=== PATIENT | female | born 1995 ===

== ENCOUNTER 2018-03-28 07:45 | Inpatient (IN) | payer OTHER ==
[2018-03-28] MEDS ORDERED: Oxytocin 30 UNIT 30 UNITS/500 ML BAG IV ONE ×2 (08:53→13:40)
[2018-03-28] MEDS ORDERED: Lactated Ringer's 1,000 ML IV SCH (09:00)
[2018-03-28 10:16] LABS: BASO % 0.5 % (0.0-2.0); EOS % 0.3 % (0.0-4.0); HEMOGLOBIN 13.4 g/dL (11.0-16.0); LYMPH # 1.2 K/uL (1.0-4.3); LYMPH % 12.5 % (20.0-40.0); MEAN CELL VOLUME 81.4 fL (81.0-99.0); MEAN CORPUSCULAR HGB CONC 33.2 g/dL (33.0-37.0); MEAN PLATELET VOLUME 7.8 fL (7.2-11.7); MONO # 0.5 K/uL (0.0-0.8); MONO % 5.5 % (0.0-10.0); NEUT % 81.2 % (50.0-75.0); NRBC % 0.1 % (0.0-2.0); RBC 4.95 Mil/uL (3.80-5.20); WHITE BLOOD COUNT 9.9 K/uL (4.8-10.8)
[2018-03-28 10:29] LABS: ALB/GLOB RATIO 1.1 (1.0-2.1); ALBUMIN 3.6 g/dL (3.5-5.0); ALT/SGPT 13 U/L (9-52); AST/SGOT 17 U/L (14-36); BLOOD UREA NITROGEN 8 mg/dL (7-17); CALCIUM 9.2 mg/dl (8.6-10.4); GFR NON-AFRICAN AMERICAN > 60
--- NOTE | 2018-03-28 12:19 | OBHP ---
Datetime: 03/28/2018 09:26 IP Adm Impression: Term, intrauterine IP Admit Plan: Admit to unit; Initiate labor protocol; Initiate labor augmentation protocol Admit Comment, IP Provider: Pelvic Type - PN: Adequate Extremities - PN: Normal Abdomen - PN: Normal Back - PN: Normal Breast - PN: Not Done Lungs - PN: Normal Heart - PN: Normal Thyroid - PN: Normal Neurologic - PN: Normal HEENT - PN: Normal General - PN: Normal FHR - Baseline A Provider: 130 Comments, ACOG Physical Exam: Abdomen: gravid, fundal height consistent with gestational age. Gestation - Est Wks by US: 39.0 IP Hx Assessment: The History has been Reviewed and is Current EGA AdmitDate IP: 38.4 Vital Signs Provider: Reviewed IP Chief Complaint: Uterine contractions NICHD Variability Prov Fetus A: Moderate 6-25bpm NICHD Accel Fetus A IP Provider: 15X15 FHR Category Provider Fetus A: Category I NICHD Decel Fetus A IP Provider: None Dilatation, Provider: 2 Effacement, Provider: 80 Station, Provider: -2 Genitourinary Exam: Normal DTRs - PN: Normal
--- NOTE | 2018-03-28 12:34 | OBADHP ---
Datetime: 03/28/2018 09:26 Admit Comment, IP Provider: 22 yo female G1 with an IUP at 38.4 weeks Presented to L_D with complaints of contractions Q 5-6 minutes since earlier todayand appears in a lot of pain. Denies LOF, VB and admits to adequate FM NST Reactive UC's Q 4-5 minutes and painful records reviewed and GBS Negative Blood Type O+ No Complications PMHx Negative PSHx Negative Allergies to [place] Social HX Used to smoke [place], Denies ETOH or other drugs Will admit for and will augment labor if indicated Anticipate a vaginal delivery Pelvic Type - PN: Adequate Extremities - PN: Normal Abdomen - PN: Normal Back - PN: Normal Breast - PN: Not Done Lungs - PN: Normal Heart - PN: Normal Thyroid - PN: Normal Neurologic - PN: Normal HEENT - PN: Normal General - PN: Normal FHR - Baseline A Provider: 130 Comments, ACOG Physical Exam: Abdomen: gravid, fundal height consistent with gestational age. Gestation - Est Wks by US: 39.0 IP Hx Assessment: The History has been Reviewed and is Current Vital Signs Provider: Reviewed IP Chief Complaint: Uterine contractions NICHD Variability Prov Fetus A: Moderate 6-25bpm NICHD Accel Fetus A IP Provider: 15X15 FHR Category Provider Fetus A: Category I NICHD Decel Fetus A IP Provider: None Dilatation, Provider: 2 Effacement, Provider: 80 Station, Provider: -2 Genitourinary Exam: Normal DTRs - PN: Normal EGA AdmitDate IP: 38.4 IP Adm Impression: Term, intrauterine IP Admit Plan: Admit to unit; Initiate labor protocol
[2018-03-28] MEDS ORDERED: Bupivacaine HCl/FentaNYL Cit 100 ML EPI ONE ×2 (12:46→18:56)
--- NOTE | 2018-03-28 12:54 | OBPN ---
Datetime: 03/28/2018 12:32 IP Progress Impression: Normal progression of labor; Reassuring heart rate IP Informed Consent Obtain: Vaginal Delivery IP Procedures: Artificial ROM; Scalp Electrode; Sterile Vag Exam IP Progress Plan: Continue present management; Augmentation Membranes, Provider: Ruptured Contraction Comments Provider: Q 3-4 minutes FHR - Baseline A Provider: 120 Gestation - Est Wks by US: 38.4 Presentation-Admit: Vertex IP Progress Note Comment: AROM performed with return of clear fluid Small change on cervical exam Pt in a lot of pain but had declined the epidural and again all of her questions answered and will considered Will Start Pitocin for augmentation of labor tracing reactive Anticipate a vaginal delivery NICHD Accel Fetus A IP Provider: 10X10 NICHD Variability Prov Fetus A: Moderate 6-25bpm Dilatation, Provider: 3 Effacement, Provider: 90 Station, Provider: -2 NICHD Decel Fetus A IP Provider: None Datetime: 03/28/2018 09:26 Vital Signs Provider: Reviewed FHR Category Provider Fetus A: Category I
[2018-03-28 15:20] LABS: SQUAMOUS EPITHIAL 1 /hpf (0-5); URINE BILIRUBIN NEGATIVE (NEGATIVE); URINE BLOOD NEGATIVE (NEGATIVE); URINE CLARITY Clear (Clear); URINE COLOR Yellow (YELLOW); URINE GLUCOSE (UA) NORMAL (Normal); URINE LEUKOCYTE ESTERASE NEG Leu/uL (Negative); URINE PROTEIN NEGATIVE (NEGATIVE); URINE UROBILINOGEN NORMAL mg/dL (0.2-1.0)
[2018-03-28] MEDS ORDERED: Lidocaine 2% MPF (5 ml) Inj ONE ×3 (15:45→23:13)
[2018-03-28 16:44] LABS: BARBITURATES, UR NEGATIVE (NEGATIVE); BENZODIAZEPINES, UR NEGATIVE (NEGATIVE); OPIATES, UR NEGATIVE (NEGATIVE); PHENCYCLIDINE, UR NEGATIVE (NEGATIVE)
[2018-03-28] MEDS ORDERED: Sodium Citrate/Citric Acid 15 ml Sol PO ONE (21:28)
[2018-03-28] MEDS ORDERED: cefOXitin IV 2 gm in Dextrose 2 GM/50 ML BAG IVPB ONE (21:28)
[2018-03-28] MEDS ORDERED: cefOXitin IV 2 gm in Saline 2 GM/50 ML BAG IVPB ONE (21:35)
[2018-03-28] MEDS ORDERED: Oxytocin 20 units in LR 2,000 ML IV ONE (21:35)
[2018-03-28] MEDS ORDERED: Sodium Bicarbonate (8.4%) 50 Meq Syringe ONE (21:50)
[2018-03-28] MEDS ORDERED: ePHEDrine 50 mg/ml Inj ONE (21:59)
[2018-03-28] MEDS ORDERED: Oxytocin 10 Units/ml Inj ONE (23:01)
[2018-03-28] MEDS ORDERED: Morphine 4 MG/ML VIAL ONE ×2 (23:04→23:11)
[2018-03-28] MEDS ORDERED: Midazolam 2 MG/2 ML VIAL ONE ×3 (23:05→23:16)
[2018-03-28] MEDS ORDERED: HYDROmorphone 0.5 mg/0.5 ml ISec IVP PRN (23:53)
[2018-03-28] MEDS ORDERED: DiphenhydrAMINE 50 mg/ml Inj IVP PRN (23:54)
--- NOTE | 2018-03-28 23:55 | OBDS ---
DELIVERY PERSONNEL Delivery Doctor: DR NOVA Cribber: Carol Rivers RN Anesthesiologist: DR DANG MATERNAL INFORMATION Delivery Anesthesia: Epidural Medications in Delivery: pitocin 20 units, methergin 0.2 mg Estimated Blood Loss (ml): 600 Maternal Complications: None RN Comments: Primary CS to a live baby boy with 02/27 Provider Comments: LTC C/S with delivery of a viable male from ROT position. Apgars 9_9 at 1 and 5 minutes respectively. BW 6lbs, 10 oz EBL 600 mls Mild uterine atony ressolved with Pitocin infusion and Methergine 0.2 mg IM x 1 Pt and tolerated the procedure well and left the OR in S_S condition. LABOR SUMMARY EDC: 04/07/2018 00:00 No. Babies in Womb: 1 Attempted: No Labor Anesthesia: Epidural LABOR INFORMATION Reason for Induction: Not Applicable Onset of Labor: 03/28/2018 18:15 Oxytocin: Augmentation Group B Beta Strep: Negative Steroids Given: None Reason Steroids Not Administered: Not Applicable Other Reason Not Administered: NA MEMBRANES Membranes Rupture Method: Artificial Rupture of Membranes: 03/28/2018 12:05 Length of Rupture (hrs): 10.82 Amniotic Fluid Color: Clear Amniotic Fluid Amount: Moderate Amniotic Fluid Odor: Normal STAGES OF LABOR Stage 3 hrs: 0 Stage 3 min: 1 Total Time in Labor hrs: 4 Total Time in Labor min: 40 CSECTION DELIVERY CSection Urgency: N/A CSection Incidence: Primary Labor: Labor Elective: Nonelective CSection Incision: Lower Uterine Transverse BABY A INFORMATION Infant Delivery Date/Time: 03/28/2018 22:54 Method of Delivery: Born in Route : No : N/A Forceps: N/A Vacuum Extraction: N/A Shoulder Dystocia : No SHOULDER DYSTOCIA BABY A Delivery Date/Time: 03/28/2018 22:54 PRESENTATION/POSITION BABY A Presentation: Cephalic Cephalic Presentation: Vertex Vertex Position: Left Occipital Anterior Breech Presentation: N/A PLACENTA INFORMATION BABY A Placenta Delivery Time : 03/28/2018 22:55 Placenta Method of Delivery: Manual Removal Placenta Status: Delivered SCORES BABY A Heart Rate 1 min: >100 bpm Resp Effort 1 min: Good Cry Reflex Irritability 1 min: Cough or Sneeze or Pulls Away Muscle Tone 1 min: Active Motion Color 1 min: Body Lem[place], Extremities Blue SCORE 1 MIN: 9 Heart Rate 5 min: >100 bpm Resp Effort 5 min: Good Cry Reflex Irritability 5 min: Cough or Sneeze or Pulls Away Muscle Tone 5 min: Active Motion Color 5 min: Body [place], Extremities Blue SCORE 5 MIN: 9 INFORMATION BABY A Gestational Age at Delivery: 38.4 Gestational Status: Term Infant Outcome : Liveborn Infant Condition : Stable Infant Sex: Male IDENTIFICATION/MEDS BABY A ID Band Number: [id number] ID Band Location: Left Leg; Left Arm Sensor Applied: Yes Sensor Number: [id number] Sensor Location : Left Leg; Left Arm Vitamin K Given : Aquamephyton 1 mg IM Erythromycin Given: Given Both Eyes WEIGHT/LENGTH BABY A Infant Birthweight (gms): 3015 Weight (lb): 6 Weight (oz): 10 Length Inches: 19.00 Infant Length cms: 48.3 CORD INFORMATION BABY A No. Cord Vessels: 3 Nuchal Cord : N/A Cord Blood Taken: Yes Infant Suction: Mouth; Nose ASSESSMENT BABY A Infant Complications: None Physical Findings at Delivery: Within Normal Limits Infant Respirations: Appears Normal Fight Manager/ALS Called : No Infant Care By: Dr. Dorado Transferred To: Nursery
[2018-03-29 07:20] LABS: HEMOGLOBIN 11.5 g/dL (11.0-16.0); MEAN CORPUSCULAR HEMOGLOBIN 26.9 pg (27.0-31.0); MEAN CORPUSCULAR HGB CONC 33.2 g/dL (33.0-37.0); MEAN PLATELET VOLUME 7.4 fL (7.2-11.7); RBC 4.27 Mil/uL (3.80-5.20); RED CELL DISTRIBUTION WIDTH 16.7 % (11.5-14.5)
[2018-03-29] MEDS: Folic Acid/Ascorbic Acid/Ferrous Sulfate 1 Tab PO SCH (09:20)
[2018-03-29] MEDS: Oxycodone/Acetaminophen 5/325 mg Tab PO PRN ×2 (09:20→20:45)
[2018-03-29] MEDS: Prenatal Multivit/Folic Acid/Iron Tab PO SCH (09:21)
[2018-03-29] MEDS: Simethicone 80 mg Chewtab PO SCH ×3 (09:21→17:51)
--- NOTE | 2018-03-29 17:09 | OBPN ---
Datetime: 03/28/2018 22:00 IP Progress Impression: Arrest of dilatation/descent; Reassuring heart rate IP Informed Consent Obtain: Section Delivery IP Procedures: Sterile Vag Exam IP Progress Plan: Deliver- Section Membranes, Provider: Ruptured Contraction Comments Provider: 2-3 mins FHR - Baseline A Provider: 140 Gestation - Est Wks by US: 38.4 Presentation-Admit: Vertex IP Progress Note Comment: Pt completely dilated and had pushed for about 2 hours with no progress Discussed with patient and FOB the finding of Arrest of Descent and probably CPD and the recommend ation of delivery by Section. The procedure, risks and possible complications were fully reviewed and all questions answered to their full satisfaction and they verbalized understanding. Pt requested to proceed and she signed the consent. Anesthesia, Peds and OR aware and will proceed. Vital Signs Provider: Reviewed; Within Normal Limits NICHD Accel Fetus A IP Provider: 10X10 NICHD Variability Prov Fetus A: Moderate 6-25bpm Dilatation, Provider: 10 Effacement, Provider: 100 Station, Provider: 0
--- NOTE | 2018-03-29 17:12 | OBPPN ---
Datetime: 03/29/2018 11:15 PP Pain Prov: Within normal limits PP Nausea Prov: Denies PP Flatus Prov: No PP BM Prov: No PP Heart Prov: Normal PP Lungs Prov: Normal PP Abdomen/Uterus Prov: Normal PP Lochia Prov: Normal PP CVA Tenderness Prov: Normal PP Extremities Prov: Normal PP C/S Incision Prov: Normal PP Comments Phys Exam Prov: fundal height 2 fingers breadths above umbilicus Dressing clean, dry and intact Mild lochia PP Impression Prov: Normal progression; difficulties PP Plan Prov: Continue present management; consult PP Progress Note Prov: Patient seen and examined at bedside. Patient POD #1 primary for fa ilure to progress. Patient has not yet tried to eat or drink. She denies nausea or vomiting. She d enies bowel movement or flatus. Patient reports she has been bottle feeding as she has not been able to breastfeed yet. She desires circumcision for baby. Assessment: female POD #1 primary Plan: Remove aguilar catheter and monitor for urine output. Encourage ambulation. Continue pain co ntrol. Monitor post- CBC. Encourage PO intake. consultation, encourage breast feeding. Plan for circumcision of baby. Discussed contraception, patient not sure of preferred meth od but reports adverse reaction to OCPs in past. Advance care IP PP Procedures: None Vital Signs Provider PP: Reviewed; Within Normal Limits
[2018-03-30] MEDS: Oxycodone/Acetaminophen 5/325 mg Tab PO PRN ×4 (02:38→22:53)
[2018-03-30 07:16] LABS: HEMOGLOBIN 10.1 g/dL (11.0-16.0); MEAN CELL VOLUME 81.2 fL (81.0-99.0); MEAN CORPUSCULAR HEMOGLOBIN 27.1 pg (27.0-31.0); MEAN CORPUSCULAR HGB CONC 33.4 g/dL (33.0-37.0); MEAN PLATELET VOLUME 7.6 fL (7.2-11.7); RBC 3.73 Mil/uL (3.80-5.20); RED CELL DISTRIBUTION WIDTH 16.7 % (11.5-14.5); WHITE BLOOD COUNT 12.1 K/uL (4.8-10.8)
[2018-03-30] MEDS: Folic Acid/Ascorbic Acid/Ferrous Sulfate 1 Tab PO SCH (09:50)
[2018-03-30] MEDS: Magnesium Hydroxide Susp 30 ml UD PO SCH ×2 (09:50→13:07)
[2018-03-30] MEDS: Prenatal Multivit/Folic Acid/Iron Tab PO SCH (09:51)
[2018-03-30] MEDS: Simethicone 80 mg Chewtab PO SCH ×4 (09:52→22:52)
--- NOTE | 2018-03-30 12:56 | OBPPN ---
Datetime: 03/30/2018 08:00 PP Pain Prov: Within normal limits PP Nausea Prov: Denies PP Flatus Prov: No PP BM Prov: No PP Heart Prov: Normal PP Lungs Prov: Normal PP Abdomen/Uterus Prov: Normal PP Lochia Prov: Normal PP CVA Tenderness Prov: Normal PP Extremities Prov: Normal PP C/S Incision Prov: Normal PP Progress Prov: Normal PP Comments Phys Exam Prov: incision clean, dry, and intact. Fundus 1 finger breadth below umbilicus, minimally tender abdomen on exam, positive bowel sounds. PP Impression Prov: Normal progression; difficulties PP Plan Prov: Continue present management; consult PP Progress Note Prov: Patient is a 22F POD #2 primary for failure to progress. Patien t reports tolerating diet well, denies nausea and vomiting. Patient denies flatus or bowel movement. She reports minimal vaginal bleeding and denies difficulty with voiding urine. She states she is h aving difficulty with breast feeding and feels baby is not latching. She is currently bottle feeding baby. She has seen business systems consultant. Assessment: 22F POD #2 primary for failure to progress Plan: Encourage ambulation and out of bed consult for breast feeding Start milk of magnesia after meals WBC count downtrending, patient afebrile Continue Iron supplementation Patient to follow with OBGYN Dr. Hines after discharge IP PP Procedures: None Vital Signs Provider PP: Reviewed; Within Normal Limits
[2018-03-31] MEDS ORDERED: Bisacodyl 5mg EC Tab PO ONE (09:22)
[2018-03-31] MEDS: Prenatal Multivit/Folic Acid/Iron Tab PO SCH (10:06)
[2018-03-31] MEDS: Simethicone 80 mg Chewtab PO SCH (10:06)
[2018-03-31] MEDS: Folic Acid/Ascorbic Acid/Ferrous Sulfate 1 Tab PO SCH (10:13)
[2018-03-31] MEDS: Magnesium Hydroxide Susp 30 ml UD PO SCH (10:14)
--- NOTE | 2018-03-31 10:27 | OBDCSUM ---
Datetime: 03/31/2018 10:26 Discharged to, Provider: Home Follow up at, Provider: clinic Disch Instr Activity: Normal activity Disch Instr Diet: Regular Discharge Instructions, Provider: Routine instructions given Discharge Diagnosis, Provider: Term Delivered Discharge Time: 03/31/2018 10:26 Follow up in weeks, Provider: 1 week Disch Referrals: None Contraception discussed, Prov: Yes Disch Activity Restrictions: No sexual activity; Nothing in vagina - [place], tampons, douche Discharge Comment, Provider: ortega duckworth Contraception after Delivery: Not Planning to Use
--- NOTE | 2018-03-31 10:27 | OBPPN ---
Datetime: 03/31/2018 10:25 PP Pain Prov: Within normal limits PP Nausea Prov: Denies PP Flatus Prov: Yes PP BM Prov: No PP Breasts Prov: Normal PP Heart Prov: Normal PP Lungs Prov: Normal PP Abdomen/Uterus Prov: Normal PP Lochia Prov: Normal PP Vulva/Perineum Prov: Normal PP CVA Tenderness Prov: Normal PP Extremities Prov: Normal PP C/S Incision Prov: Normal PP Progress Prov: Normal PP Impression Prov: Normal progression PP Plan Prov: Continue present management; Discharge PP Progress Note Prov: pt seen adn examiend preort pain contorlled, ambuting, voidng, passign flatus , no BM, otleratign regualr diet withotu nause, vomitng, cp, sob, urinary complaint. pt is breat and bottel feedign and denies any sadness or depression VSS PE gen :N nad AAO x 3 RESP Ctab/l CVS: rrr, +S1/S2 BREAST: sot, NT, non enroged b/l ABD: soft, NT/ND, +BS, no guaridng, no rebound tendnerss, no rigdity FUNDUS: Firm, belwo level of umbiclus INCCSION C/?DI hwealling well VE: minmal lochai, non fusl smelling EX:T negative yuly's sign, no calf tendnerness A/P S/p PTLCS POD #3 doignw ell f/u am labs bowel regimen anticiapte dc home f/u clinci 1 week precation givne Vital Signs Provider PP: Reviewed; Within Normal Limits
[2018-03-31] MEDS ORDERED: Influenza Vaccine 60 MCG/0.5 ML SYR (3 yr & up) IM ONE (11:25)
[2018-03-31 11:50] VITALS: BP 103/64; PULSE 74; RESP 18; TEMP 98.4; O2SAT 98
--- NOTE | 2018-04-02 18:54 | OP ---
PROCEDURE DATE: 03/28/2018 PREOPERATIVE DIAGNOSES: 1. Intrauterine at 38.4 weeks. 2. Admitted in labor and required augmentation of labor with Pitocin. 3. Arrest of descent. 4. Small pelvic outlet. POSTOPERATIVE DIAGNOSES: 1. Intrauterine at 38.4 weeks. 2. Admitted in labor and required augmentation of labor with Pitocin. 3. Arrest of descent. 4. Small pelvic outlet. 5. Mild uterine atony after delivery of . PROCEDURE: Primary low transverse cervical section with delivery of a viable male from the ROT position with Apgars of 9 and 9 at 1 and 5 minutes respectively and a weight of 6 pounds 15 ounces. SURGEON: Giana Badillo DO HEEL PAINTER: Daniel Delcid MD ANESTHESIA: Epidural. ANESTHESIOLOGIST: Chad Pena [employer] MECH[employer]IC IN ATTENDANCE: Dr. Dorado SPECIMEN: The placenta, cord blood and cord pH obtained and sent. ESTIMATED BLOOD LOSS: 600 mL. PREOPERATIVE INDICATIONS: The patient, as I stated above, was admitted in early labor with minimal pain tolerance. records revealed GBS negative and otherwise negative. Her labor required augmentation with Pitocin. The patient progressed well to complete dilatation and push for approximately two hours and then arrest of descent was diagnosed. Patient was then counseled regarding a proposed delivery. The patient and the father of the baby both verbalized understanding and after all their questions were answered, they requested to proceed. COMPLICATIONS: Mild uterine atony that was resolved with an increased infusion of Pitocin and one dose of Methergine IM. PREOPERATIVE NOTE: The procedure, the risks and the possible complications were fully reviewed with the patient to include, but not exclusively, hemorrhage, infection or injury to bowel, bladder, bilateral tubes and ovaries, internal blood vessels or any other internal organs. The patient verbalized understanding, requested to proceed and signed the consent. DESCRIPTION OF PROCEDURE: The patient was taken to the operating room, she was given a spinal form of anesthesia and she was sterilely prepped and draped in the usual manner for the above-named procedure. The Cuellar catheter was inserted. A time-out was then carried out as adequate and as indicated, and after ascertaining an adequate level of anesthesia, the procedure was initiated. The knife was utilized to make a low transverse skin incision in the suprapubic area and utilizing the Pfannenstiel technique, the abdomen was entered and the bladder flap was developed and placed underneath the Dashawn blade. The second knife was then utilized to make a low transverse uterine incision in the lower uterine segment and the infant was then delivered from the ROT position. The bulb syringe was utilized to suction the naso and the oropharynx upon delivery of the head and upon completion of the delivery, which was carried out without difficulty. The cord was doubly clamped and transected, and the infant was passed to the Laborer [employer]estock in attendance for further inspection. The cord blood and the cord pH were obtained and sent and the placenta was spontaneously delivered and sent to Pathology. The uterus was exteriorized through the abdominal incision. The endometrial cavity was cleansed with a moist lap and the uterine incision was then closed utilizing 0-PDS suture in a full-thickness manner with an adequate closure and adequate hemostasis. Bilateral tubes and ovaries were noted to be within normal limits, and after cleaning the cul-de-sac of blood clots, the uterus was repositioned in the abdominal cavity. Bilateral gutters were also cleansed, and after ascertaining adequate hemostasis of the uterine incision, we proceeded to close the abdomen in layers. The rectus muscle was reapproximated in the midline with few interrupted sutures of 2-0 Vicryl and incorporating the peritoneum. The fascia was closed with 0-PDS and the skin was closed with frankie. Sterile dressing was applied, and after evacuating the vagina of blood clots, the procedure was terminated. All instruments and sponges were accounted for x3. The patient and the tolerated the procedure well and both left the operating room in stable and satisfactory condition. Giana Badillo DO BATS[facility]
== END 2018-03-31 15:15 | disposition home or self-care (01) | DRG 540 ==
LOC: C.EROB 07:45 → C.4D 08:53 → C.4M 03-29 02:30
PROVIDERS: ADMIT Obstetrics & Gynecology; ATTEND Obstetrics & Gynecology
PROC: 10D00Z1 Extraction of Products of Conception, Low, Open Approach (ICD-10-PCS; principal; 2018-03-28)
DX: O32.4XX0 Maternal care for high head at term, not applicable or unspecified (principal); Z87.891 Personal history of nicotine dependence; Z3A.38 38 weeks gestation of pregnancy; Z37.0 Single live birth